=== PATIENT | female | born 1970 | race Caucasian/White ===

== ENCOUNTER 2017-08-19 19:21 | Emergency (ER) | payer SELFPAY ==
[~2017-08-19] VITALS: Ht 167.6 cm; Wt 70.0 kg
[~2017-08-19 19:21] MED LIST: CYCL1PAK PO; LORTA5 PO
[2017-08-19 19:29] VITALS: BP 129/87; PULSE 93; RESP 18; TEMP 98.1; O2SAT 94
[2017-08-19] MEDS ORDERED: ASPI-183 PO (19:41)
--- NOTE | 2017-08-19 19:47 | PD ---
HPI . nosebleed Chief Complaint: Nosebleed Time Seen by Provider: 19:29 Travel History International Travel<30 days: No Contact w/Intl Traveler<30days: No Traveled to known affect area: No History of Present Illness HPI pt has nose bleed for 4 hrs prior to arrival was trying to stop it by leaning her head back and hold the ends of her nares. Called EMS who told her to hold the middle of her nose pushing into the septum , and on arrival she has no active bleeding but clumps of bloody hair on left hair and stained dried blood on left cheek. She reports she gets them every day and is supposed to be on coumdin and takes aspirin daily for pain . SHe was to have her nose septum fixed by and ENT but insurance issues led to no treatment . SHe is not bleeding on initial eval PFSH Past Medical History Hx Anticoagulant Therapy: Yes (Coumadin (not taking), 325mg ASA PO) Arthritis: No Asthma: No Autoimmune Disease: No Anxiety: No Depression: No Heart Rhythm Problems: No Cancer: No Cardiac Catheterization: Yes Cardiovascular Problems: Yes (HTN) High Cholesterol: Yes Chest Pain: No Congestive Heart Failure: No COPD: No Cerebrovascular Accident: Yes (2010) Diabetes: No Diminished Hearing: No Endocrine: No Gastrointestinal Disorders: No GERD: No Genitourinary: No Hiatal Hernia: No Immune Disorder: No Kidney Stones: No Musculoskeletal: No Neurologic: Yes Psychiatric: No Reproductive: No Respiratory: No Migraines: No Renal Failure: No Seizures: No Sleep Apnea: No Ulcer: No PNEUMOCCOCAL Vaccine (Year): 2 : 3 Para: 3 Tubal Ligation: Yes Past Surgical History Abdominal Surgery: No Body Medical Devices: PIN IN RIGHT WRIST Cardiac Surgery: Yes (Stent 2010) Ear Surgery: No Endocrine Surgery: No Eye Surgery: No Genitourinary Surgery: No Gynecologic Surgery: No Oral Surgery: No Thoracic Surgery: No Other Surgery: Yes (MASS REMOVED FROM THROAT-BENIGN) Social History Alcohol Use: Yes Tobacco Use: Yes Substance Use: Yes Allergies-Medications (Allergen,Severity, Reaction): Coded Allergies: No Known Allergies (Verified Adverse Reaction, Unknown, 08/19/17) Reported Meds & Prescriptions Reported Meds & Active Scripts Active Reported Aspirin 325 Mg Tab 325 Mg PO DAILY Review of Systems Except as stated in HPI: all other systems reviewed are Neg HENT: Positive: Nosebleed Physical Exam Narrative GENERAL: left nare septum oozing blood SKIN: Warm and dry. HEAD: Atraumatic. Normocephalic. EYES: Pupils equal and round. No scleral icterus. No injection or drainage. ENT: No nasal bleeding or discharge. Mucous membranes pink and moist. NECK: Trachea midline. No JVD. CARDIOVASCULAR: Regular rate and rhythm. RESPIRATORY: No accessory muscle use. Clear to auscultation. Breath sounds equal bilaterally. GASTROINTESTINAL: Abdomen soft, non-tender, nondistended. Hepatic and splenic margins not palpable. MUSCULOSKELETAL: Extremities without clubbing, cyanosis, or edema. No obvious deformities. NEUROLOGICAL: Awake and alert. No obvious cranial nerve deficits. Motor grossly within normal limits. Five out of 5 muscle strength in the arms and legs. Normal speech. PSYCHIATRIC: Appropriate mood and affect; insight and judgment normal. Data Data Last Documented VS Orders Orders Complete Blood Count With Diff (08/19/17 19:43) Prothrombin Time / Inr (Pt) (08/19/17 19:43) Comprehensive Metabolic Panel (08/19/17 19:43) Oxymetazoline 0.05% [place] (Afrin 0.0 (08/19/17 20:00) [employer]rate [employer] (Silver Nitra (08/19/17 20:00) Ed Discharge Order (08/20/17 03:34) Labs Laboratory Tests Test 08/19/17 19:45 White Blood Count 6.8 TH/MM3 Red Blood Count 3.71 MIL/MM3 Hemoglobin 11.7 GM/DL Hematocrit 35.6 % Mean Corpuscular Volume 96.1 FL Mean Corpuscular Hemoglobin 31.5 PG Mean Corpuscular Hemoglobin Concent 32.8 % Red Cell Distribution Width 17.3 % Platelet Count 146 TH/MM3 Mean Platelet Volume 8.6 FL Neutrophils (%) (Auto) 57.2 % Lymphocytes (%) (Auto) 28.8 % Monocytes (%) (Auto) 11.4 % Eosinophils (%) (Auto) 2.0 % Basophils (%) (Auto) 0.6 % Neutrophils # (Auto) 3.9 TH/MM3 Lymphocytes # (Auto) 2.0 TH/MM3 Monocytes # (Auto) 0.8 TH/MM3 Eosinophils # (Auto) 0.1 TH/MM3 Basophils # (Auto) 0.0 TH/MM3 CBC Comment DIFF FINAL Differential Comment Prothrombin Time 11.2 SEC Prothromb Time International Ratio 1.1 RATIO Blood Urea Nitrogen 2 MG/DL Creatinine 0.42 MG/DL Random Glucose 103 MG/DL Total Protein 8.7 GM/DL Albumin 2.9 GM/DL Calcium Level 8.5 MG/DL Alkaline Phosphatase 164 U/L Aspartate Amino Transf (AST/SGOT) 221 U/L Alanine Aminotransferase (ALT/SGPT) 46 U/L Total Bilirubin 0.4 MG/DL Sodium Level 135 MEQ/L Potassium Level 3.4 MEQ/L Chloride Level 100 MEQ/L Carbon Dioxide Level 23.2 MEQ/L Anion Gap 12 MEQ/L Estimat Glomerular Filtration Rate 161 ML/MIN [facility] Medical Decision Making Medical Screen Exam Complete: Yes Emergency Medical Condition: Yes Differential Diagnosis nose bleed of trauma , vs overanticoagulated , vs structural cause other causes of epistaxis Narrative Course afrin applied and no rebleed labs within normal limit Diagnosis Primary Impression: Epistaxis Patient Instructions: Epistaxis (DC), General Instructions Disposition: 01 DISCHARGE HOME Condition: Good Reynaldo Padilla MD Aug 19, 2017 19:47
[2017-08-19] MEDS ORDERED: SILVER NITR/POTASSIUM NITRATE APPLICATORS TOPICAL ONE (20:00)
[2017-08-19] MEDS ORDERED: OXYMETAZOLINE HCL 0.05% 15 ML NASAL SPRAY NASAL ONE (20:00)
[2017-08-19 20:37] LABS: AUTOMATED NEUTROPHIL # 3.9 TH/MM3 (1.8-7.7); BASOPHIL % 0.6 % (0.0-2.0); EOSINOPHIL # 0.1 TH/MM3 (0-0.4); HEMATOCRIT 35.6 % (35.0-46.0); HEMOGLOBIN 11.7 GM/DL (11.6-15.3); LYMPH % 28.8 % (9.0-44.0); MEAN CELL VOLUME 96.1 FL (80.0-100.0); MEAN CORPUSCULAR HEMOGLOBIN 31.5 PG (27.0-34.0); MEAN CORPUSCULAR HGB CONC 32.8 % (32.0-36.0); MEAN PLATELET VOLUME 8.6 FL (7.0-11.0); MONO % 11.4 % (0.0-8.0); MONOCYTE # 0.8 TH/MM3 (0-0.9); NEUT % 57.2 % (16.0-70.0); PLATELET COUNT 146 TH/MM3 (150-450); RED BLOOD COUNT 3.71 MIL/MM3 (4.00-5.30); RED CELL DISTRIBUTION WIDTH 17.3 % (11.6-17.2); WHITE BLOOD COUNT 6.8 TH/MM3 (4.0-11.0)
[2017-08-19 20:46] LABS: INTERNATIONAL NORMALIZED RATIO 1.1 RATIO; PROTHROMBIN TIME - PATIENT 11.2 SEC (9.8-11.6)
[2017-08-19 21:00] LABS: ALBUMIN 2.9 GM/DL (3.4-5.0); AST (GOT) 221 U/L (15-37); BICARBONATE 23.2 MEQ/L (21.0-32.0); BLOOD UREA NITROGEN 2 MG/DL (7-18); CALCIUM 8.5 MG/DL (8.5-10.1); CHLORIDE 100 MEQ/L (98-107); CREATININE 0.42 MG/DL (0.50-1.00); GLOMERULAR FILTRATION RATE 161 ML/MIN (>89); GLUCOSE,RANDOM 103 MG/DL (74-106); SODIUM (NA) 135 MEQ/L (136-145)
[2017-08-19 21:02] LABS: ALT (GPT) 46 U/L (10-53)
[2017-08-19 21:04] LABS: ALKALINE PHOSPHATASE 164 U/L (45-117); TOTAL BILIRUBIN ADULT 0.4 MG/DL (0.2-1.0); TOTAL PROTEIN 8.7 GM/DL (6.4-8.2)
[2017-08-19 22:00] VITALS: PULSE 78; RESP 18; O2SAT 93
[2017-08-19 22:30] VITALS: PULSE 82; RESP 18; O2SAT 94
[2017-08-19 23:00] VITALS: PULSE 84; RESP 18; O2SAT 93
[2017-08-20 03:40] VITALS: PULSE 78; RESP 16; O2SAT 98
== END 2017-08-20 03:47 | disposition home or self-care (01) ==
LOC: NEPE 19:21
DX: R04.0 Epistaxis (principal); I10 Essential (primary) hypertension; Z72.0 Tobacco use; Z79.82 Long term (current) use of aspirin
CPT/HCPCS: 80053; 85025; 85610; 99283